=== PATIENT | male | born 1960 | race Two or more races ===

== ENCOUNTER 2023-08-05 22:25 | Emergency (ER) | payer OTHER ==
[~2023-08-05] VITALS: Ht 154.9 cm; Wt 74.8 kg
== END 2023-08-06 00:08 | disposition home or self-care (01) ==
LOC: ER 22:26
DX: S81.812A Laceration without foreign body, left lower leg, initial encounter (principal); W19.XXXA Unspecified fall, initial encounter; Y93.89 Activity, other specified; Y92.89 Other specified places as the place of occurrence of the external cause; Y99.8 Other external cause status